=== PATIENT | female | born 1980 ===

== ENCOUNTER 2017-08-01 10:33 | Emergency (ER) | payer MEDICAID, OTHER ==
[2017-08-01 10:39] VITALS: BP 129/75; PULSE 84; TEMP 97; O2SAT 100
[2017-08-01 10:40] VITALS: BMI 32.5
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
--- NOTE | 2017-08-01 12:30 | RAD ---
HISTORY: COMPARISON: [facility] TECHNIQUE: Chest PA and lateral FINDINGS: LINES AND TUBES: None. LUNG AND PLEURA: The lungs are well inflated and clear. HEART AND MEDIASTINUM: The heart is not enlarged. The hilar and mediastinal contours are within normal limits. SKELETAL STRUCTURES: The bony structures are within normal limits for the patient's age. VISUALIZED UPPER ABDOMEN: Normal. OTHER FINDINGS: None. IMPRESSION: No acute findings.
== END 2017-08-01 12:48 | disposition home or self-care (01) ==
LOC: H.ER 10:33
DX: R07.89 Other chest pain (principal); M54.9 Dorsalgia, unspecified
CPT/HCPCS: 71020; 81025; 96372; 99283; J1885

== ENCOUNTER 2018-05-03 22:49 | Emergency (ER) | payer MEDICAID ==
[2018-05-03 22:49] VITALS: BMI 32.5
[2018-05-03 23:03] VITALS: BP 124/85; PULSE 78; RESP 17; TEMP 98.1
== END 2018-05-04 00:16 | disposition left against medical advice (07) ==
LOC: H.ER 22:49
DX: Z02.89 Encounter for other administrative examinations (principal)

== ENCOUNTER 2018-05-19 15:13 | Emergency (ER) | payer MEDICAID ==
[2018-05-19 15:13] VITALS: BMI 32.5
[2018-05-19 15:19] VITALS: BP 129/83; PULSE 88; RESP 17; TEMP 98; O2SAT 100
[2018-05-19] MEDS ORDERED: Bacitracin 500 Units/gm Oint Foilpak UD ONE (15:31)
--- NOTE | 2018-05-19 15:31 | ED PDOC ---
Lower Extremity Pain/Injury Time Seen by Provider: 05/19/18 15:23 Chief Complaint (Nursing): Lower Extremity Problem/Injury Chief Complaint (Provider): left foot and ankle pain, right knee pain History Per: Patient Onset/Duration Of Symptoms: Other (prior to arrival) Current Symptoms Are (Timing): Still Present Additional Complaint(s): 38 y/o female with no significant PMHx presents for evaluation of left foot and ankle pain s/p trip and fall 1 hour ago. Patient states she was walking when she stepped in a ditch and injured her left foot and ankle. She also reports an abrasion to her right knee sustained during the fall. She reports taking Motrin prior to arrival. Denies head injury or LOC. PMD: None Past Medical History Reviewed: Historical Data, Nursing Documentation, Vital Signs Vital Signs: Last Vital Signs Temp 98.0 F 05/19/18 15:16 Pulse 88 05/19/18 15:16 Resp 17 05/19/18 15:16 BP 129/83 05/19/18 15:16 Pulse Ox 100 05/19/18 15:16 - Medical History PMH: No Chronic Diseases - Surgical History Other surgeries: Left foot surgery - Family History Family History: States: No Known Family Hx - Living Arrangements Living Arrangements: With Family - Social History Current smoker - smoking cessation education provided: Yes Alcohol: None Drugs: Denies - Immunization History Hx Tetanus Toxoid Vaccination: Yes (booster last given 2 years ago) Hx Influenza Vaccination: No Hx Pneumococcal Vaccination: No - Home Medications Home Medications: Ambulatory Orders Medication Instructions Recorded Acetaminophen/Butalbital/Caf 1 tab PO Q6 PRN #16 tab 04/02/17 [Fioricet] Cephalexin [cephalexin] 500 mg PO BID #10 cap 04/02/17 Ibuprofen [Motrin] 600 mg PO TID 7 Days tab 08/01/17 Lidocaine 5% [Lidoderm] 1 ea TD DAILY #5 patch 08/01/17 - Allergies Allergies/Adverse Reactions: Allergies Allergy/AdvReac Type Severity Reaction Status Date / Time No Known Allergies Allergy Verified 04/02/17 19:22 Wells Criteria for PE - Wells Criteria for Pulmonary Embolism Clinical Signs and Symptoms of DVT: No P.E is #1 Diagnosis, or Equally Likely: No Heart Rate >100: No Immobilization at least 3 days;Surgery previous 4 weeks: No Previous, objectively diagnosed PE or DVT: No Hemoptysis: No Malignancy w/treatment within 6 months, or palliative: No Total Score: 0 Review of Systems ROS Statement: Except As Marked, All Systems Reviewed And Found Negative Musculoskeletal: Positive for: Foot Pain (left foot and ankle injury) Skin: Positive for: Lesions (superficial abrasion to right knee) Physical Exam - Reviewed Nursing Documentation Reviewed: Yes Vital Signs Reviewed: Yes - Physical Exam Appears: Positive for: Well, Non-toxic, No Acute Distress Skin: Positive for: Normal Color. Negative for: Rash Eye Exam: Positive for: Normal appearance Extremity: Positive for: Normal ROM (Full ROM right knee, abrasion and skin tear to right patellar region with no tenderness to knee), Tenderness ( tenderness and swelling to left foot and ankle region with decreased rom, no bony deformity noted) Neurologic/Psych: Positive for: Alert, Oriented - ECG O2 Sat by Pulse Oximetry: 100 (RA) Pulse Ox Interpretation: Normal - Other Rad Left foot and ankle x-ray X-Ray: Interpreted by Me, Viewed By Me X-Ray Interpretation: no fx, no dis Medical Decision Making Medical Decision Makin:28 Impression: 38 y/o female with left foot and ankle pain s/p trip and fall, also with right knee abrasion Plan: -Left foot and ankle x-ray -pain meds declined Abrasion to knee was cleansed with saline and betadine, bacitracin and bandage applied. Patient aware of x-ray results, all questions answered. Segun wrap and ortho shoe applied. Advised ice, elevation, NSAID's prn pain and follow up with podiatry clinic. Scribe Attestation: Documented by Gigi Tate, acting as a scribe for Jo Ann Sneed PA-C. Provider Scribe Attestation: All medical record entries made by the scribe were at my direction and personally dictated by me. I have reviewed the chart and agree that the record accurately reflects my personal performance of the history, physical exam, medical decision making, and the department course for this patient. I have also personally directed, reviewed, and agree with the discharge instructions and disposition. Procedures - Splinting Location: left foot Pre-Made Type: segun wrap, ortho shoe Pre-Proc Neuro Vasc Exam: normal Post-Proc Neuro Vasc Exam: normal Disposition - Clinical Impression Clinical Impression: Knee abrasion, Foot sprain - Patient ED Disposition Is Patient to be Admitted: No Counseled Patient/Family Regarding: Studies Performed, Diagnosis, Need For Followup - Disposition Referrals: Podiatry Clinic [Outside] Disposition: Routine/Home Disposition Time: 15:58 Condition: STABLE Additional Instructions: Ice, rest and elevate affected area. Take advil as needed for pain. Follow up with podiatry clinic in 2-3 days. Instructions: Skin Abrasions (DC), Foot Sprain (DC) Forms: [employer] (Congolese)
--- NOTE | 2018-05-19 16:51 | RAD ---
PROCEDURE: Left Ankle Radiographs. HISTORY: trauma COMPARISON: None FINDINGS: BONES: No acute fracture or destructive bony lesion identified. A small accessory ossicle or chronic avulsion fractures noted inferior to the medial malleolus. JOINTS: Normal. No osteoarthritis. Ankle mortise maintained. Talar dome intact SOFT TISSUES: Limited edema is seen anterior to the tibiotalar joint. OTHER FINDINGS: None. IMPRESSION: No acute fracture or dislocation identified. Limited soft tissue edema edema is seen anterior to the tibiotalar joint.
--- NOTE | 2018-05-19 16:53 | RAD ---
PROCEDURE: Left Foot Radiographs. HISTORY: trauma COMPARISON: None. FINDINGS: BONES: No acute fracture or destructive bony lesion identified. 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 Clinically correlate. No apparent dislocation or subluxation nevertheless. SOFT TISSUES: Normal. OTHER FINDINGS: None. IMPRESSION: No acute fracture or dislocation appreciable. 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 Clinically correlate further.
== END 2018-05-19 16:23 | disposition home or self-care (01) ==
LOC: H.ER 15:13
DX: S93.602A Unspecified sprain of left foot, initial encounter (principal); S80.211A Abrasion, right knee, initial encounter; W01.0XXA Fall on same level from slipping, tripping and stumbling without subsequent striking against object, initial encounter; Y92.89 Other specified places as the place of occurrence of the external cause